=== PATIENT | male | born 1990 ===

== ENCOUNTER 2024-08-28 17:08 | Emergency (ER) | payer SELFPAY ==
[2024-08-28 17:11] VITALS: BP 128/79; PULSE 95; RESP 20; TEMP 36; O2SAT 94
[2024-08-28 17:15] VITALS: BP 128/79; PULSE 95; RESP 20; TEMP 36; O2SAT 94
--- NOTE | 2024-08-28 17:15 | DI.CT_ITS ---
Exam(s) CT RENAL COLIC WO EXAM: CT RENAL COLIC WO CLINICAL HISTORY: dysuria. TECHNIQUE: Imaging Protocol: Axial computed tomography images with coronal and sagittal reformatted images were created and reviewed. COMPARISON: No exams were available for comparison FINDINGS: ABDOMEN: Lung Bases: Normal where visualized. Liver: There is diffuse decreased attenuation of the liver consistent with fatty infiltration. The l iver measures 21.4 cm long. No measurable mass. Gallbladder and biliary tract: Cholelithiasis. No biliary ductal dilatation. Pancreas: Normal density, no abnormal calcifications or inflammatory process. Spleen: Normal. Kidneys: Normal size, contour and axis.There is a 3 mm nonobstructing stone in the upper pole of the right kidney. No masses seen. Adrenal glands: No mass is seen. Lymph nodes: Within normal limits. Abdominal Aorta: Abdominal portion non-dilated. PELVIS: Bladder:Symmetric distention, no gross wall thickening. There is a 3 mm stone in the dependent portio n of the right side of the urinary bladder. Bowel: No obstruction or bowel wall thickening. Appendix is unremarkable. Peritoneal cavity: No ascites, collection or mesenteric inflammatory response. No free air. Reproductive organs: Unremarkable as visualized. Bones: Within normal limits. Soft Tissues: Within normal limits. IMPRESSION: 1. Unremarkable CT scan of the abdomen and pelvis. 3 mm stone in the urinary bladder which may rep resent a recently passed calculus. 2. No hydronephrosis. 3. Right nephrolithiasis. 4. Hepatic steatosis and hepatomegaly. 5. Cholelithiasis. No biliary ductal dilatation. 6. The preliminary [facility] report was reviewed. RADIATION DOSE DELIVERED: 1,080.31mGy.cm Total DLP DATA REPOSITORY: All CT scans at this facility are submitted to the National Radiology Data Registry (NRDR) Dose Index Registry (DIR) with the [employer] ([employer]). RADIATION OPTIMIZATION: All CT scans at this facility use at least one of these dose optimization te chniques: automated exposure control; mA and/or kV adjustment per patient size (includes targeted exa ms where dose is matched to clinical indication); or iterative reconstruction.
--- NOTE | 2024-08-28 17:17 | W.ED.GENAD ---
Discharge Plan Disposition Patient Disposition: Home Condition: Stable Discharge Details Clinical Impression: Calculus of ureterovesical junction (UVJ) Primary Care Provider: Cynthia,Local ED Provider: Ronald Morris Home Meds and New Rx's Prescriptions: New ketorolac 10 mg tablet 10 mg PO QID 5 Days Qty: 19 0RF Rx Instructions: maximum total duration of 5 days from all oral, intranasal, or parenteral formulations Continued tamsulosin [Flomax] 0.4 mg capsule 0.4 mg PO DAILY Discharge Instructions Instructions: Ketorolac (Systemic), Kidney Stone, Adult ED Additional Instructions: You were seen in the emergency department for your kidney stone, it appears to be at the junction of the ureter and bladder, it is 2 mm of a likely pass, please continue the Flomax and your primary care placed you on, take the prescribed ketorolac as directed for 5 days, stay well-hydrated drink at least half a gallon of water a day, drink diuretics like coffee and cranberry juice, purchase [id number] Azo for symptomatic relief of urethral irritation. Take 1000 mg of Tylenol 4 times per day, once you run out of ketorolac you can substitute in ibuprofen 400 mg for that medicine. Please return for any urinary retention, significant increase in pain especially fever. Discharge Data Discharge Date/Time-TO BE ENTERED AT DEPARTURE: 08/28/24 20:30 HPI General Date/Time Provider Initiated Documentation: 08/28/24 17:17. HPI Narrative: 34 year-old male presents to ED today by POV/ambulating with a chief complaint of pinching pain within the urethra, seen by his PCP in [place] and started on tamsulosin for possible kidney stone due to urinalysis dipstick with onset 4 days ago. Quality described as resolved hematuria, now having worsening irritation within the urethra itself, had right flank pain several weeks ago, no radiation to fever, intractable nausea or vomiting, active hematuria, constipation, severe abdominal pain, chest pain. Severity is described as moderate. Palliating factors include nothing specific. Provoking factors include nothing specific. Events leading up to the incident/Associated Symptoms: Patient's PCP is in [place] he is up here for vacation. Patient not anticoagulated. Related Data Home Medications ?Medication ?Instructions ?Recorded ?Confirmed ketorolac 10 mg tablet 10 mg PO QID 5 days #19 tabs 08/28/24 tamsulosin 0.4 mg capsule (Flomax) 0.4 mg PO DAILY 08/28/24 08/28/24 Previous Rx's ?Medication ?Instructions ?Recorded ketorolac 10 mg tablet 10 mg PO QID 5 days #19 tabs 08/28/24 Allergies Allergy/AdvReac Type Severity Reaction Status Date / Time No Known Allergies Allergy Unverified 08/28/24 17:16 General Stated Complaint: Urinary BASILIA: 3 Review of Systems All systems reviewed & are unremarkable except as noted in HPI and below Exam Narrative Exam Narrative: GENERAL APPEARANCE: Well-nourished, non-toxic, awake and alert, atraumatic, no acute distress. SKIN: Warm, pink, dry, intact, without rashes/lesions/ulcerations. HEAD: Normocephalic, atraumatic, normal hair distribution for gender/age. EYES: Normal conjunctiva, no exudates on lids/lashes. ENT: Nares patent, no circumoral cyanosis, no facial swelling NECK: Supple, trachea midline, painless cervical ROM. LUNGS/CHEST: Lungs CTA bilaterally- no rhonchi/rales/wheezes diffusely, non-labored respirations, normal A/P diameter, symmetrical expansion, no chest wall deformity HEART (CV/PV): Regular rate and rhythm without murmur, no peripheral edema, no JVD. ABDOMEN: Soft, non-distended, no guarding, no tenderness, no CVA tenderness to percussion. MSK: Normal ROM, no swelling/deformity to bilateral UEs or LEs, moving all extremities without weakness, no cyanosis, spine midline without tenderness, normal curvature. NEURO: Mental Status AAOx4 - alert to person, place, time, events No facial droop, no forehead involvement. Motor: No focal weakness - strength 5/5 in bilateral UEs and LEs, proximal and distal, symmetric. Sensory: sensation intact to light touch globally. Gait normal: patient ambulated without ataxia into ED room. PSYCH: euthymic, cooperative, pleasant, appropriate speech Course Vital Signs Vital signs: Vital Signs Temperature 36.0 C L 08/28/24 17:11 Pulse 95 H 08/28/24 17:11 Respiratory Rate 20 08/28/24 17:11 Blood Pressure 128/79 08/28/24 17:11 Pulse Oximetry 94 08/28/24 17:11 Temperature 36.0 C L 08/28/24 17:15 Temperature Source Tympanic 08/28/24 17:15 Pulse 95 H 08/28/24 17:15 Respiratory Rate 20 08/28/24 17:15 Blood Pressure 128/79 08/28/24 17:15 Blood Pressure Position Sitting 08/28/24 17:15 Pulse Oximetry 94 08/28/24 17:15 Oxygen Delivery Method Room Air 08/28/24 17:15 Oxygen Flow Rate 0 08/28/24 17:15 Medical Decision Making This dictation utilizes [id number] dictation software and may contain unedited grammatical errors. 34 year-old male presents to ED today by POV/ambulating with a chief complaint of pinching pain within the urethra, seen by his PCP in [place] and started on tamsulosin for possible kidney stone due to urinalysis dipstick with onset 4 days ago. Quality described as resolved hematuria, now having worsening irritation within the urethra itself, had right flank pain several weeks ago, no radiation to fever, intractable nausea or vomiting, active hematuria, constipation, severe abdominal pain, chest pain. Severity is described as moderate. Palliating factors include nothing specific. Provoking factors include nothing specific. Events leading up to the incident/Associated Symptoms: Patient's PCP is in [place] he is up here for vacation. Patients' medical history: Likely renal stone. Family and social history: Noncontributory, not sexually active. Pertinent exam findings / vital signs include no CVA tenderness bilaterally, no abdominal tenderness or peritoneal signs, benign cardiopulmonary exam, nontoxic and afebrile. Differential / pathologies of concern include renal stone, obstructive uropathy, less likely UTI. Diagnostic studies of: - CBC, CMP, lipase, UA, CT renal study without contrast. - CBC shows no leukocytosis - UA shows large blood, 30 protein, no UTI - CMP was ordered and drawn, lab did not inform anyone that there is a blood hemolyzed and patient had left by the time they informed us to redraw -CT renal study shows a 2 mm calculus within the bladder lumen near the right UVJ, no right hydronephrosis Interventions of: - Added ketorolac to the patient's tamsulosin. ED Course/Assessment/Plan: 34-year-old male presents with urethral rhinitis, has likely renal stone based on his presentation and was prescribed Flomax by his PCP in [place], did perform a renal colic CT which shows 2 mm stone within the bladder/near the UVJ, counseled the patient that this would likely pass and I added ketorolac to his Flomax and recommended he aggressively hydrate himself and add in therapeutic dosing of Tylenol, strict return criteria for any urinary obstruction or retention, worsening fever with nausea. Findings not consistent with hydronephrosis, infected kidney stone. Disposition of calculus of ureterovesical junction (UVJ). Patient verbalized understanding of the plan and return to ED criteria and engaged in shared decision making. Medical Records Medical records reviewed: Yes I reviewed the patient's medical records. Imaging Data Radiologic Study: Attestation: I personally reviewed and interpreted this imaging study as follows: Imaging: CT Scan Radiologist's impression: Exam: CT Abdomen And Pelvis Without Contrast Exam date and time: 08/28/2024 19:10 Age: 34 years old Clinical indication: Other: Dysuria TECHNIQUE: Imaging protocol: Computed tomography of the abdomen and pelvis without contrast. COMPARISON: No relevant prior studies available. FINDINGS: Liver: Fatty liver with areas of focal sparing. No hepatic masses on noncontrast imaging. Gallbladder and biliary ducts: Contracted gallbladder probably containing stones, less likely mural calcification. No significant biliary dilation or radiopaque stones in the biliary tree. Pancreas: No ductal dilation. No mass on noncontrast imaging. Spleen: No splenomegaly or suspicious lesions. Adrenal glands: No suspicious mass on noncontrast imaging. Kidneys and ureters: Punctate nonobstructive bilateral nephrolithiasis. Stomach and bowel: No obstruction. No mucosal thickening on noncontrast imaging. Appendix: No evidence of appendicitis. Intraperitoneal space: No free air. No significant fluid collection. Vasculature: No abdominal aortic aneurysm. Lymph nodes: No significantly enlarged lymph nodes on noncontrast imaging. Urinary bladder: 2 mm calculus, likely within the bladder lumen, near the right UVJ, no right hydronephrosis. Reproductive: Unremarkable as visualized. Bones/joints: No acute fracture or subluxation. Soft tissues: No suspicious lesions. IMPRESSION: 1. 2 mm calculus, likely within the bladder lumen, near the right UVJ, no right hydronephrosis. 2. Punctate nonobstructive bilateral nephrolithiasis. 3. Incidental findings as described. Dictated and Authenticated by: Shira Salazar MD. Lab Data Lab results reviewed: Yes I reviewed the patient's lab results. Labs: Laboratory Tests Range/Units 08/28/24 08/28/24 17:43 17:53 WBC (4.4-10.8) 10^3/uL 9.89 RBC (4.36-5.78) 10^6/uL 5.11 Hgb (13.5-17.5) g/dL 15.9 Hct (40.0-50.0) % 45.4 MCV (80-95) fL 89 MCH (27.0-33.0) pg 31.1 MCHC (32.0-36.0) % 35.0 RDW (11.8-14.1) % 11.6 L Plt Count (130-400) 10^3/uL 258 MPV (8.0-11.0) fL 10.4 Immature Gran % % 0.6 Neutrophils % % 76.5 Lymphocytes % % 16.0 Monocytes % % 5.7 Eosinophils % % 0.6 Basophils % % 0.6 Nucleated RBC % (0.0-0.3) % 0.0 Absolute Neutrophils (1.2-6.7) 10^3/uL 7.57 H Absolute Lymphocytes (1.2-3.4) 10^3/uL 1.58 Absolute Monocytes (0.1-0.8) 10^3/uL 0.56 Absolute Eosinophils (0.0-0.7) 10^3/uL 0.06 Absolute Basophils (0.0-0.2) 10^3/uL 0.06 Sodium Cancelled Potassium Cancelled Chloride Cancelled Carbon Dioxide Cancelled Anion Gap Cancelled BUN Cancelled Creatinine Cancelled Est GFR (CKD-EPI 2020) Cancelled Glucose Cancelled Calcium Cancelled Total Bilirubin Cancelled AST Cancelled ALT Cancelled Alkaline Phosphatase Cancelled Total Protein Cancelled Albumin Cancelled Lipase Cancelled Urine Color (Yellow) Yellow Urine Clarity (Clear) Clear Urine pH (5-8) 5.5 Ur Specific Arvin (1.005-1.025) >= 1.030 H Urine Protein (Neg-Trace) mg/dL 30 H Urine Ketones (Negative) mg/dL Negative Urine Blood (Negative) Large H Urine Nitrite (Negative) Negative Urine Bilirubin (Negative) Negative Urine Urobilinogen (Up to 0.2) mg/dL 0.2 Ur Leukocyte Esterase (Negative) Negative Urine RBC (0-2) HPF 20-50 H Urine WBC (0-5) HPF Negative Ur Epithelial Cells (Negative) HPF Negative Urine Crystals (Negative) HPF Negative Urine Bacteria (Negative) HPF Rare Urine Casts (Negative) LPF Negative Urine Mucus (Negative) Negative Ur Culture Indicated? No Urine Glucose (Negative) mg/dL Negative Quality:SDOH Health Related Social Needs: No Data to Display PFSH All Active Problems (Updated 08/28/24 @ 20:13 by BONNIE Coombs) Calculus of ureterovesical junction (UVJ) (Acute) Social History Smoking risk assessment performed?: No
[2024-08-28 17:57] LABS: Abs Immature Grans 0.06 10^3/uL (0.0-0.06); Absolute Basophil Count 0.06 10^3/uL (0.0-0.2); Absolute Eosinophil Count 0.06 10^3/uL (0.0-0.7); Absolute Lymphocyte Count 1.58 10^3/uL (1.2-3.4); Absolute Monocyte Count 0.56 10^3/uL (0.1-0.8); Absolute Neutrophil Count 7.57 10^3/uL (1.2-6.7); Basophils % 0.6 %; Eosinophils % 0.6 %; HCT 45.4 % (40.0-50.0); HGB 15.9 g/dL (13.5-17.5); Immature Grans % 0.6 %; MCH 31.1 pg (27.0-33.0); MCV 89 fL (80-95); MPV 10.4 fL (8.0-11.0); Monocytes % 5.7 %; Neutrophils % 76.5 %; Platelet Count 258 10^3/uL (130-400); RBC 5.11 10^6/uL (4.36-5.78); RDW 11.6 % (11.8-14.1); RDW-SD 37.3 fL; WBC 9.89 10^3/uL (4.4-10.8)
[2024-08-28 18:13] LABS: Bilirubin Negative (Negative); Blood Large (Negative); Clarity Clear (Clear); Glucose Negative (Negative); Ketones Negative (Negative); Leukocyte Esterase Negative (Negative); Nitrite Negative (Negative); Specific Gravity >= 1.030 (1.005-1.025); Urobilinogen 0.2 mg/dL (Up to 0.2); pH 5.5 (5-8)
[2024-08-28 18:31] LABS: Bacteria Rare HPF (Negative); C & S Indicated? No; Casts Negative LPF (Negative); Crystals Negative HPF (Negative); Epithelial Cells Negative HPF (Negative); Mucus Negative (Negative); RBC 20-50 HPF (0-2); WBC Negative HPF (0-5)
[2024-08-28] MEDS: Nicotine 2 MG GUM CH (19:37)
--- NOTE | 2024-08-28 20:09 | DI.[facility]_ITS ---
PROCEDURE INFORMATION: Exam: CT Abdomen And Pelvis Without Contrast Exam date and time: 08/28/2024 19:10 Age: 34 years old Clinical indication: Other: Dysuria TECHNIQUE: Imaging protocol: Computed tomography of the abdomen and pelvis without contrast. COMPARISON: No relevant prior studies available. FINDINGS: Liver: Fatty liver with areas of focal sparing. No hepatic masses on noncontrast imaging. Gallbladder and biliary ducts: Contracted gallbladder probably containing stones, less likely mural calcification. No significant biliary dilation or radiopaque stones in the biliary tree. Pancreas: No ductal dilation. No mass on noncontrast imaging. Spleen: No splenomegaly or suspicious lesions. Adrenal glands: No suspicious mass on noncontrast imaging. Kidneys and ureters: Punctate nonobstructive bilateral nephrolithiasis. Stomach and bowel: No obstruction. No mucosal thickening on noncontrast imaging. Appendix: No evidence of appendicitis. Intraperitoneal space: No free air. No significant fluid collection. Vasculature: No abdominal aortic aneurysm. Lymph nodes: No significantly enlarged lymph nodes on noncontrast imaging. Urinary bladder: 2 mm calculus, likely within the bladder lumen, near the right UVJ, no right hydronephrosis. Reproductive: Unremarkable as visualized. Bones/joints: No acute fracture or subluxation. Soft tissues: No suspicious lesions. IMPRESSION: 1. 2 mm calculus, likely within the bladder lumen, near the right UVJ, no right hydronephrosis. 2. Punctate nonobstructive bilateral nephrolithiasis. 3. Incidental findings as described. Dictated and Authenticated by: Shira Salazar MD. Orderin Arturo Cardenas MD
[2024-08-28 20:26] VITALS: BP 153/87; PULSE 75; O2SAT 96
[2024-08-28 20:28] VITALS: BP 153/87; PULSE 75; RESP 16; O2SAT 96
[2024-08-28] MEDS: Ketorolac 10 MG TAB PO (20:29)
[2024-08-28] MEDS: Acetaminophen 500 MG TAB 1000 MG PO (20:29)
== END 2024-08-28 20:30 | disposition home or self-care (01) ==
PROVIDERS: Emergency Provider Physician Assistant
DX: N20.1 Calculus of ureter (principal); R10.30 Lower abdominal pain, unspecified; R30.0 Dysuria
CPT/HCPCS: 99284 ×2; 36415; 80053; 83690; 74176; 81003; 81015; 85025